=== PATIENT | female | born 1945 | race Two or more races ===

== ENCOUNTER 2018-08-16 05:55 | Day surgery (SDC) | payer OTHER ==
[~2018-08-16 05:55] MED LIST: CATAFLAN PO; CLONAZEPAM0.5 MG PO; CRESTOR10 MG PO; KETO10TA2 PO; NEURIN; NORFLEX PO
[2018-08-16] MEDS ORDERED: MACROBID 100 M100 MG PO (09:35)
[2018-08-16] MEDS ORDERED: ULTRACET PO (09:36)
== END 2018-08-16 12:22 | disposition home or self-care (01) ==
LOC: CIR.AMB 05:55
DX: N81.3 Complete uterovaginal prolapse (principal); N39.3 Stress incontinence (female) (male)
CPT/HCPCS: 57282; 57210; 57265; 57288; C1771